=== PATIENT | female | born 1945 | race Caucasian/White ===

== ENCOUNTER 2020-01-04 11:10 | Inpatient (IN) | payer OTHER, MEDICARE ==
[~2020-01-04] VITALS: Ht 157.5 cm; Wt 62.5 kg
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
[2020-01-04 16:59] VITALS: BP 134/68
[2020-01-04 18:09] LABS: URINE BILIRUBIN NEGATIVE (Negative); URINE BLOOD NEGATIVE (Negative); URINE CLARITY CLEAR; URINE COLOR YELLOW; URINE GLUCOSE-RANDOM* NEGATIVE (Negative); URINE KETONES NEGATIVE (Negative); URINE LEUKOCYTES-REFLEX NEGATIVE (Negative); URINE NITRITE-REFLEX NEGATIVE (Negative); URINE PROTEIN (DIPSTICK) NEGATIVE (Negative)
[2020-01-04 19:43] VITALS: BP 165/83
[2020-01-04 21:00] VITALS: BP 165/83
--- NOTE | 2020-01-05 01:58 | NUR ---
PATIENT ASSESSED AND IS ALERT X 1, SELF. WAS WONDERING IN HALLWAY ALL NIGHT. UP AD MABEL ROOM AND HALLWAY. IS PARANOID THINKING PEOPLE ARE OUT TO GET HER. USUES HER WALKER FOR AMBULATING. LAST BM WAS 01/03/20. NO CODE. ON REGULAR DIET TAKEN HER MEDS WELL TONIGHT. VS STABLE. LUNGS CLEAR. NO EDEMA NOTED. CONTINENT WITH HELP WEARS ATTENDS.NO SI/HI/ NOTED. IS A ALOPEMENT RISK. MONITOR DOORSAT ALL TIMES. DENIES ANY PAIN. NO SHYSICAL OR VERBAL AGGRESSION NOTED SO FAR THIS SHIFT. CONT PALN OF CARE.
[2020-01-05 08:00] VITALS: BP 136/82
--- NOTE | 2020-01-05 09:03 | NUR ---
PT AT BREAKFAST TABLE THIS AM APPETITE GOOD. PT TOOK AM MEDS W/O DIFFICULTY. NO INCREASED ANXIETY. NO S/SARAHY OR RESP DISTRESS.
--- NOTE | 2020-01-05 10:41 | NUR ---
DR LUEVANO HERE TO SEE PATIENT HAS NEW CONSULT ORDER.
--- NOTE | 2020-01-05 12:39 | NUR ---
PT ATE LUNCH AND IS NOW WALKING THE UNIT WITH ROLLING WALKER AND STEADY GAIT. PT W/O PAIN OR INCREASED ANXIETY.
[2020-01-05 19:47] VITALS: BP 132/66
--- NOTE | 2020-01-05 22:45 | NUR ---
Care assumed of patient at 1915: Patient resting in bed at start of shift. Easily aroused. Calm, pleasant and cooperative. Patient alert and oriented to person only. Patient having disorganized tangential speech. Difficulty focusing and answering questions during assessment. Patient pleasantly confused. Patient did have difficulty making eye contact and had a suspicious affect when nurse was speaking. Patient declined HS snack. Patient took HS medication whole without difficulty. Patient did attempt to chew some medications and needed directed on swallowing. Drank 240cc water without difficulty. Patient gait steady, up with walker. Provided stand by assist for safety due to increased fall risk. Continent of bladder. No aggression or agitation shown. No behaviors indicative of SI/HI/AH/VH observed. Patient was able to go to sleep without difficulty and is resting quietly in bed at this time.
[2020-01-06 07:53] VITALS: BP 126/83
[2020-01-06 08:00] VITALS: BP 126/83
--- NOTE | 2020-01-06 08:52 | NUR ---
PT SITTING IN DINING ROOM NEEDING FED BREAKFAST. PT TOOK MEDS WITH APPPLESAUCE AND CHEWED UP MEDS. PT HAS EYES CLOSED AT TABLE. PT USING WALKER WITH STAND-BY ASSIST. PT LUNGS CLEAR. PT DENIES ANY PAIN.
--- NOTE | 2020-01-06 18:22 | NUR ---
PT HAS BEEN RESTING TODAY IN CHAIR IN DINING ROOM. NOTICED HANDS SHAKING WITH DINNER. PT ASKING ABOUT A BABY. PT USES WALKER FAITHFULLY. NO ISSUES FROM PATIENT. SHE HAS TAKEN MEDS AND ATTENDED GROUP.
[2020-01-06 19:37] VITALS: BP 160/97
--- NOTE | 2020-01-07 02:35 | NUR ---
ASSUMED PT CARE AROUND 1930. ALERT AND AWAKE. INDEPENDENT WITH AMBULATION WITH WALKER. PT DOES NOT ANSWER MAJORITY OF THE QUESTIONS APPROPRIATELY. ABLE TO VERBALIZE ABSENCE OF PAIN WHEN ASKED. VSS. NO S/S ACUTE DISTRESS NOTED OR REPORTED AT THIS TIME. WILL CONT TO MONITOR FOR ANY CHANGES IN CONDITION.
[2020-01-07 07:39] VITALS: BP 149/91
--- NOTE | 2020-01-07 08:13 | NUR ---
PT SITTING AT TABLE NOT EATING. PT ENCOURAGED TO EAT. PT STATED SHE DIDN'T FEEL LIKE EATING AT THIS TIME. PLACED MEDS INFRONT OF HER. PT NOT TAKING MEDS ON OWN. PLACED MEDS CRUSHED IN OATMEAL. PT DID TAKE A FEW BITES THEN SAID NO. PT USES WALKER TO AMBULATE FAITHFULLY.
[2020-01-07 08:15] VITALS: BP 149/91
--- NOTE | 2020-01-07 09:19 | NUR ---
PT SITTING IN GROUP. PT NOT CONVERSING UNLESS ASKED QUESTIONS.
--- NOTE | 2020-01-07 12:31 | NUR ---
PT ONLY ATE A FEW CHIPS FOR LUNCH. PT SEEMS LIKE SHE DOES NOT HAVE AN APPETITE.
--- NOTE | 2020-01-07 15:00 | NUR ---
PT GIVEN ICE CREAM TO EAT. PT ENCOURAGED TO GO TO GROUP. PT DID GO TO GROUP WITH ICE CREAM.
[2020-01-07 19:34] VITALS: BP 167/88
[2020-01-07 22:00] VITALS: BP 167/88
--- NOTE | 2020-01-08 03:07 | NUR ---
Assumed care of patient this pm shift. Patient in good spirits, calm and cooperative. Patients affect blunted. Patient is alert and oriented to self. Patient denies hi/si. Patient takes medications whole with thin fluids. Patients assessment shows no signs of acute distress. Patient is considered a falls risk and ambulates with a walker. Patient has on yellow socks and shirt. Patient has not shown any negative behaviors. We will continue to monitor per hospital policy.
[2020-01-08 07:48] VITALS: BP 160/80
--- NOTE | 2020-01-08 09:05 | NUR ---
0700 ASSUMED CARE OF PATIENT, PATIENT IN BED WITH EYES CLOSED AT THAT TIME. VS- BP 160/80 P 80 RESP 14 TEMP 97.8 O2 SATS 100% 0800 PATIENT OUT TO DAYROOM FOR BREAKFAST. PATIENT SITTING QUIETLY AT TABLE WITH PEER. MEDICATION GIVEN WHOLE WITH APPLESAUCE WITHOUT DIFFICULTY. PATIENT DOES NOT ATTEND GROUP THIS AM. WILL CONTINUE TO OBSERVE
--- NOTE | 2020-01-08 12:57 | NUR ---
Faxed updates to [facility].
[2020-01-08 19:21] VITALS: BP 150/92
[2020-01-08 23:21] VITALS: BP 150/92
--- NOTE | 2020-01-09 02:49 | NUR ---
Assumed care of patient this pm shift. Patient in good spirits sitting in the mileu during assessment. Patients affect appears blunted. Patient is alert and oriented to self and place. Patient takes medications whole with thin fluids. Patients assessment shows no signs of acute distress. Vital signs are stable. Patient ambulates with a walker and has a steady gait. Patient is pleasantly confused. We will continue to monitor per hospital policy.
[2020-01-09 07:46] VITALS: BP 162/90
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
--- NOTE | 2020-01-09 16:04 | NUR ---
MICAH contacted [facility] and spoke with Callie concerning Pt's d/c. Micah informed PT will be discharged on 01/11/2020. Callie stated put in a request for transportation on that day for 10 am. Callie stated transportation will pick up truck driver between 10-12 pm. Callie stated she would call me back once she is notified of a more specific time. MICAH contacted Pt's DPOA, Sarah Monsivais, to inform of Pt pending d/c. Sarah had no questions or concerns. Pt will be d/c back to [facility] on 01/11/2020.
--- NOTE | 2020-01-09 18:53 | NUR ---
0700 ASSUMED CARE OF PATIENT, PATIENT IN ROOM AT THAT TIME. PATIENT TO DAYROOM FOR BREAKFAST. PATIENT CONFUSED AND DIFFICULT TO UNDERSTAND. MEDICATIONS ATTEMPTED TO GIVE, PATIENT WILL NOT OPEN EYES AND MEDICATIONS NOT GIVEN AT THAT TIME. 30 MIN LATER PATIENT TAKES MEDICATION CRUSHED IN PUDDING WITHOUT DIFFICULTY. PATIENT UP AMB WITH WALKER WITH STEADY GAIT PACING AND ASKING FOR STAFF TO FOLLOW HER TO ROOM. DIFFICULTY UNDERSTANDING AT TIMES.
[2020-01-09 19:31] VITALS: BP 183/95
--- NOTE | 2020-01-09 21:34 | NUR ---
Care assumed of patient at 1915: Patient pacing the halls at start of shift. Having disorganized speech, tangential thoughts. Patient confused and forgetful. Alert and oriented to person only. Patient denies pain and discomfort. No behaviors indicative of SI/HI/AH/VH. No exit seeking behaviors observed. No aggression or agitation observed. No delusional or paranoia behaviors observed. Patient ate 50% HS snack. Took HS medication whole without difficulty. Patient continent of bowel and bladder. Cooperative with assessment. Patient currently resting quietly in bed at this time.
[2020-01-10 09:19] VITALS: BP 154/94
--- NOTE | 2020-01-10 09:40 | NUR ---
0700 ASSUMED CARE OF PATIENT , PATIENT IN BED AT THAT TIME. 0840 TABLET REPAIR TO ROOM, PATIENT CONTINUES TO SLEEP. PATIENT AWAKES EASILY, MEDICATION TAKEN CRUSHED IN APPLESAUCE WITHOUT DIFFICULTY. PATIENT CONTINUES TO REFUSE BREAKFAST. 0910 PATIENT OUT TO DAYROOM TO ATTEND GROUP. PATIENT ALERT AND ORIENTED X1. DENIES PAIN. DENIES SI/HI. WILL CONTINUE TO OBSERVE
--- NOTE | 2020-01-10 17:46 | NUR ---
PATIENT IN DAYROOM EATING DINNER. PATIENT OBSERVED WITH HAND TREMORS WHILE EATING. PATIENT FEEDING SELF, SLOW TO EAT. PATIENT DENIES NEEDS AT THAT TIME. PATIENT OBSERVED AMB WITH WALKER WITHOUT DIFFICULTY.
[2020-01-10 19:35] VITALS: BP 163/95
--- NOTE | 2020-01-10 23:55 | NUR ---
Care assumed of patient at 1915: Patient resting quietly in bed at start of shift. Easily aroused. Alert and oriented to first name only. Pleasantly confused and forgetful. Speech disorganized and tangential. Denies pain and discomfort. Unknown if she comprehends questions. No s/s of pain or discomfort observed. Patient denies SI/HI/AH/VH. No behaviors indicative of SI/HI/AH/VH, delusions or paranoia. No exit seeking behaviors observed. No aggression observed. Unknown what patient is talking about but she seems to be passionate about it and smiles during conversation. Patient took HS medication whole without difficulty. Declined HS snack. Continent of bladder. Resting quietly in bed at this time.
[2020-01-11 07:27] VITALS: BP 159/82
[2020-01-11] MEDS ORDERED: CLARITIN10 M2 PO (08:22)
[2020-01-11] MEDS ORDERED: NORVASC5 MG PO (08:23)
[2020-01-11] MEDS ORDERED: ARICEPT10 M1 PO (08:23)
[2020-01-11] MEDS ORDERED: DEPAKOTE SPRIN125 MG PO (08:24)
[2020-01-11] MEDS ORDERED: REMERON 30 MG T30 M1 PO (08:24)
[2020-01-11] MEDS ORDERED: NAMENDA 5 MG TAB5 M1 PO (08:24)
[2020-01-11] MEDS ORDERED: PROTONIX 20 MG20 M1 PO (08:25)
[2020-01-11] MEDS ORDERED: POTASSIUM CITRA5 MEQ PO (08:25)
[2020-01-11 10:46] VITALS: BP 159/82
--- NOTE | 2020-01-11 11:57 | NUR ---
0910 RESUMMED CARE FROM OVERNIGHT SHIFT THIS AM, PATIENT COOPERATIVE CALM. PATIENT IS ORIENTED TIMES 1 TO SELF ONLY, DENIES SI/HI/AH/VH AT PRESENT. PATIENTS LUNGS CLEAR ABDOMEN SOFT ROUND BOWEL SOUNDS PRESENT, PATIENT DISCHARGED TO [facility] WITH BELONGINGS AND DISCHARGED INFORMATION. I FAXED DISCHARGE INFORMATION TO KYLE AT [facility] AND GAVE REPORT BERONICA THE NURSE.
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
== END 2020-01-11 10:05 | DRG 57 ==
LOC: SBH 11:10
PROVIDERS: ADMIT Psychiatry & Neurology Psychiatry; ATTEND Psychiatry & Neurology Psychiatry
DX: G30.9 Alzheimer's disease, unspecified (principal); F01.51 Vascular dementia, unspecified severity, with behavioral disturbance; F02.81 Dementia in other diseases classified elsewhere, unspecified severity, with behavioral disturbance; I10 Essential (primary) hypertension; M19.90 Unspecified osteoarthritis, unspecified site; G47.00 Insomnia, unspecified; I73.9 Peripheral vascular disease, unspecified; G89.29 Other chronic pain; Z96.653 Presence of artificial knee joint, bilateral; Z20.828 Contact with and (suspected) exposure to other viral communicable diseases
CPT/HCPCS: 10880

== ENCOUNTER 2020-02-16 17:03 | Inpatient (IN) | payer OTHER, MEDICARE ==
[~2020-02-16] VITALS: Ht 160 cm; Wt 56.7 kg
--- NOTE | ~2020-02-16 | D ---
[facility] [place] [address] DISCHARGE SUMMARY Name: JUDI CHONG Room #: 52-B DIS IN M.R.#: [id number] Admission: 02/17/20 Attend Phys: Pankaj Newman DO Discharge: 03/04/20 Date of : 41 Report #: [id number] THIS REPORT FOR: cc: Narciso Fang MD, Mark I. MD Kerstein, Andrew H. DO ~ CC: Pankaj Fang DATE OF SERVICE: 03/04/2020 INPATIENT PSYCHIATRIC DISCHARGE SUMMARY ATTENDING PSYCHIATRIST: Pankaj Newman DO FIRE INVESTIGATOR: At the time of discharge is Shantell Wolfe MD DISCHARGE DIAGNOSIS: Major neurocognitive disorder, likely due to Alzheimer disease, advanced end-stage. Medical comorbidities include COVID-19 positive. Additional morbidities are urinary tract infection, antibiotics finished; acute kidney injury; failure to thrive; anorexia, secondary to her dementia; and other complications and severe protein-calorie malnutrition; history of hypertension. The patient is discharging on a regular diet. She is discharging to [facility] due to being COVID-19 isolation. The patient is a no code. DISCHARGE MEDICATIONS: Include mirtazapine 30 mg p.o. at bedtime for sleep, appetite, depression; olanzapine 5 mg p.o. daily, for psychosis and impulse control; potassium chloride 20 mEq p.o. daily for supplementation; ____ 10 mg p.o. daily for allergic rhinitis; donepezil 10 mg p.o. at bedtime for cognitive enhancement and consideration should be made to discontinuing this given the severity of her dementia and significant weight loss over the last year, amlodipine 5 mg p.o. daily, Depakote 500 mg p.o. b.i.d. for impulse control as well, memantine 10 mg p.o. b.i.d. LABORATORY DATA: Significant laboratories done during this admission, most recent CBC was on 02/28, H and H 13.0 and 39.6, white count 7.4, platelet count 201. Differential showed a segmented neutrophil percentage 68.5, which was high. Chemistries, most recently on 02/28, sodium 142, potassium 4.2, chloride 106, bicarbonate 27, anion gap 9, BUN 29, creatinine 1.5, estimated GFR 34, glucose 124, calcium is 9.2. Urinalysis this admission on 03/01 showed trace protein, 1+ ketones, otherwise normal. Glucose was negative. Urine toxicology for Depakote levels on 02/20 was ____, 02/21 was desirable with 87. There was a repeat level on the at 95. So, I backed down on the Depakote from [address] [address] DISCHARGE SUMMARY Name: JUDI CHONG Room #: 522B-B DIS IN M.R.#: [id number] Admission: 02/17/20 Attend Phys: Pankaj Newman DO Discharge: 03/04/20 Date of : 41 Report #: [id number] 500 b.i.d. COVID-19 PCR serology was as follows; negative on 02/24, negative on admission, but positive on the . IMAGING: This admission chest x-ray on 03/03 showed possible early airspace infiltrate in the right lower lung. Followup PA and lateral chest x-ray was recommended. The patient has been using a walker most of the admission, but currently has weakened due to her COVID infection, so she is in bed and wheelchair only. Microbiology this admission, urine culture from 02/16 showed a pansensitive E. coli. REASON FOR ADMISSION: Back on 02/15 or 02/16, sent to the ER from [facility], patient of ____. She had aggressive behavior. Also, complaining of suicidal ideation. HOSPITAL COURSE: The patient was admitted to Geriatric Psychiatry Unit. Initially stabilized the patient by titrating her Depakote. We were about to discharge her around a week ago when she had some assaultive behavior over the weekend, so I elected to keep her longer, started her on olanzapine and has been titrated to 5 mg twice a day. Unfortunately, due to COVID-19 exposure, the whole unit was tested and this patient came back positive. At the day of discharge, I spoke with her DPOA for healthcare ____ and then her DPOA financial ____ who is a family medicine physician in [place], [place], discussed her diagnosis and her poor prognosis. Recommending her to remain no code without ICU care and if her general physical conditions worsen, she certainly would be a good hospice candidate. Greater than 45 minutes were spent on discharge activities today including telephone conversations with her general financial and healthcare DPOAs. I did a progress note for the patient that includes mental status examination. PROGNOSIS: For this patient is poor given advanced dementia, COVID-19 status, ___. By: 16 56 Pankaj Newman, DO /nt
[~2020-02-16 17:03] MED LIST: ARICEPT10 M1 PO; CLARITIN10 M2 PO; DEPAKOTE SPRIN125 MG PO; NAMENDA 5 MG TAB5 M1 PO; NORVASC5 MG PO; POTASSIUM CITRA5 MEQ PO; PROTONIX 20 MG20 M1 PO; REMERON 30 MG T30 M1 PO
[2020-02-16 17:15] VITALS: BP 123/75
[2020-02-16 18:43] LABS: ABSOLUTE NEUTROPHILS 4.8 thou/uL (1.4-8.2); BASOPHILS 1.3 % (0.0-2.0); EOSINOPHILS 1.4 % (0.0-3.0); HEMATOCRIT 39.3 % (37.0-47.0); HEMOGLOBIN 13.1 gm/dL (12.0-15.0); MCH 33.8 pg (26.0-34.0); MCHC 33.2 g/dL (28.0-37.0); MCV 101.9 fL (80.0-100.0); MONOCYTES 8.4 % (1.0-8.0); PLATELET COUNT 182 thou/uL (150-400); POLYS 60.9 % (36.0-66.0); RBC 3.86 mil/uL (4.20-5.00); RDW 13.8 % (10.5-14.5)
[2020-02-16 18:57] LABS: ANION GAP 13 mmol/L (7-16); BUN 20 mg/dL (7-18); CALCIUM 9.4 mg/dL (8.5-10.1); CHLORIDE 105 mmol/L (98-107); CO2 24 mmol/L (21-32); CREATININE 1.6 mg/dL (0.6-1.0); GLUCOSE 100 mg/dL (74-106); SALICYLATE < 2.8 mg/dL (2.8-20.0); SODIUM 142 mmol/L (136-145)
[2020-02-17 07:29] VITALS: BP 159/98
--- NOTE | 2020-02-17 08:51 | NUR ---
YONY contacted Annie Sánchez to speak to pt's nurse about what brought pt back to hospital. Was told nurse was busy and will call YONY back. SW team will continue to follow pt during her stay on this unit.
[2020-02-17 13:40] VITALS: BP 131/82
--- NOTE | 2020-02-17 13:44 | NUR ---
PATIENT ARRIVED ON UNIT FROM ER AT 2019 THIS MORNING. 74 YEAR OLD FEMALE RESIDENT OF [facility] WHO HAS BEEN AGITATED AND AGGRESSIVE AT FACILITY WITH STAFF. JAYSON MADRID HER DAUGHTER IS HER DPOA. PATIENT ARRIVED CALM AND REDIRECTABLE. UNSTEADY ON FEET - RESTLESS - EXTREMELY CONFUSED - UNABLE TO ANSWER ANY QUESTIONS ADDRESSED TO HER. PATIENT SUFFERS FROM HTN, CHRONIC PAIN, VASCULAR DISEASE AND OSTEOARTHRITITS. OBSERVED NO AGITATION BUT RESTLESS AND ATTEMPTS TO AMBULATE WITHOUT ASSISTANCE. NEEDS MONITORING FOR SAFETY - PATIENT KNOWN TO EXIT SEEK AT NIGHT AT FACILITY - AMBULATION WITH WALKER. PATIENT DNR - CONTINENT OF BOWEL AND BLADDER AND MAKES NEEDS KNOWN WHEN NECESSARY. PATIENT'S DIAGNOSIS IS UNSPECIFIED DEMENTIA WITH BEHAVORIAL DISTURBANCE. PATIENT NEEDS ASSISTANCE WITH FEEDING TO ENCOURAGE EATING. ORDERS ENTERED BY DR. LESLIE AND CARE PLAN AND ADMITTANCE INFORMATION PROCESSED. HEART RATE STRONG AND STEADY WHEN ASSESSED AND LUNGS CLEAR ON AUSCULTATION. TREMORS EVIDENT IN UPPER EXTREMITIES -
[2020-02-17 15:23] LABS: URINE BLOOD NEGATIVE (Negative); URINE CLARITY CLOUDY; URINE COLOR YELLOW; URINE GLUCOSE-RANDOM* NEGATIVE (Negative); URINE KETONES 1+ (Negative); URINE PROTEIN (DIPSTICK) 1+ (Negative); URINE SPECIFIC GRAVITY >= 1.030 (1.005-1.035)
[2020-02-17 15:24] LABS: ICTOTEST (BILI CONFIRMATORY) Negative (Negative); URINE BILIRUBIN NEGATIVE (Negative); URINE LEUKOCYTES-REFLEX 1+ (Negative); URINE NITRITE-REFLEX POSITIVE (Negative)
[2020-02-17 15:45] LABS: SQUAMOUS 4-10 Moderate /LPF (0-3); URINE WBC-REFLEX >25 Many /HPF (0-5)
[2020-02-17 15:46] LABS: CASTS None Seen /LPF (None Seen); CRYSTALS None Seen /LPF (None Seen); URINE RBC 0-2 Rare /HPF (0-2)
--- NOTE | 2020-02-17 16:58 | NUR ---
PATIENT CARE ASSUMED AFTER ARRIVAL AT 2020 - QUIET - NEEDS ENCOURAGEMENT AND ASSISTANCE WITH MEALS. MAKES NEEDS KNOWN WITH TOLLETING BUT NEEDS REDIRECTION WITH ADL'S. TAKES MEDICATIONS WITH PUDDING. ALERT TO SELF ONLY. NON RESPONSIVE TO QUESTIONS ADDRESSED TO HER. NO AGITATION OR AGGRESSION OBSERVED. HAS BEEN IN MALVIN CHAIR WITH [employer]. WANTS TO GET UP BUT UNSTEADY AND NEEDS MONITORING. CAN STAND AND PIVOT WITH HELP WHEN TRANSFERRING TO WHEELCHAIR. STARTED ON CEFUROXINE FOR UTI - MONITOR FOR ALLERGY REACTION. DR. BOSWELL AWARE OF THIS.
[2020-02-17 17:30] LABS: AMP/METHAMP Negative (Negative); BARBITURATES Negative (Negative); BENZODIAZEPINES Negative (Negative); COCAINE Negative (Negative); METHADONE Negative (Negative); OPIATES Negative (Negative); PCP Negative (Negative)
[2020-02-17 19:06] VITALS: BP 145/90
--- NOTE | 2020-02-18 05:01 | NUR ---
Assumed care of patient this pm shift. Patient is alert and oriented to self only. Patient is confused. Patient does not appear to show any signs of hi/si. Patient takes medications crushed in pudding. Patient is considered a falls risk. Patient has on a yellow shirt and ambulates via wheelchair. Patients affect is blunted. No signs of acute distress noted. We will continue to monitor per hospital policy.
--- NOTE | 2020-02-18 08:22 | NUR ---
PT APPROACHED FOR AM MEDS IN DAYROOM-SITTING AT BREAKFAST TABLE WITH EYES TIGHTLY CLOSED-WHEN ASKED WHY WASN'T EATING REFUSED TO RESPOND. AM MEDS PLACED IN PUDDING AND PT INFORMED I HAD HER AM MEDICATIONS-REFUSED TO OPEN MOUTH. WHEN INFORMED MD MAY REQUEST IM MEDS IF PO REFUSED OPENED HER EYES AND SPIT PHLEGM DIRECTLY IN NURSES FACE. NOTIFIED.
--- NOTE | 2020-02-18 11:09 | NUR ---
REUSED BREAKFAST PREVIOUSLY NOTED REFUSED AM MEDS-REFUSED GROUP. WANDERING INTO OTHERS ROOMS STATING "HELP ME, I NEED HELP" WHEN STAFF ATTEMPTED TO ASSIST TO BATHROOM ATTEMPTED TO PINCH AND HIT. WHEN QUESTIONED WHAT TYPE OF HELP SHE NEEDED UNABLE OR UNWILLING TO ANSWER STARING AT NURSE WITH ANGRY FACIAL EXPRESSION. WHEN ASKED IF SHE WAS HAVING PAIN STATES ANGRILY "NO ARE YOU"
[2020-02-18 11:14] VITALS: BP 138/82
--- NOTE | 2020-02-18 15:45 | NUR ---
HAS WITHDRAWN TO ROOM LYING IN BED MAJORITY OF TIME WITH EYES TIGHTLY CLOSED-DOES NOT APPEAR TO BE SLEEPING WHEN STAFF ENTERS ROOM HAS EYES OPEN AND WHEN ATTEMPTS ARE MADE TO COMMUNICATE CLOSES EYES TIGHTLY AND TURNS HEAD AWAY-HAS BEEN REAPPROACHED X 2 TO TAKE AM MEDICATIONS BUT CONTINUES TO REFUSE-REFUSED LUNCH-REFUSES PO FLUIDS WHEN OFFERED-MATERIAL STOCKKEEPER YARD NOTIFIED OF ABOVE DURING AM ROUNDS.WILL CONTINUE TO MONITOR Q 12 FOR SAFTEY-ENCOURAGE COMPLIENCE WITH FOOD/FLUIDS AND MEDS
--- NOTE | 2020-02-18 18:41 | NUR ---
UP AND WALKING AROUND IN ROOM AT APPROX 1630 CAUSING BED EXIT TO ALARM-ASSISTED TO BR AND DID VOID SMALL AMOUNT IN BSC-GAIT STEADY WITHOUT ASSIST. DID AGREE TO COME TO DAYROOM AND EAT SUPPER-ATE APPROX 30 PERCENT BEFORE RETURNING TO ROOM-REFUSED TO SIT WITH PEERS-VERY CONFUSED-ORIENTED TO NAME ONLY STATING "I HAVE BEEN BAD-I'M BAD" VOIDED AGAIN PER BSC AND ASSISTED INTO BED PER REQUEST-POSITIONED FOR COMFORT
[2020-02-18 20:17] VITALS: BP 128/74
--- NOTE | 2020-02-19 05:15 | NUR ---
Assumed care of pt @ 1900. Pt calm et cooperative most of shift. Refused HS meds this shift. Unable to assess ambulation as pt remained bedfast during shift. VSWNL. Health assessment with no abnormalities at present time. Denies SI/HI/AVH at present time. Isolated in room most of shift. Currently resting in bed with eyes closed. Will continue to monitor per unit protocol.
--- NOTE | 2020-02-19 08:30 | NUR ---
PT OUT TO EAT BREAKFAST. GETTING READY TO PASS MEDS AND PT WENT BACK TO BED. PT DOES NOT TALKING TO OTHERS AND KEEPS TO HERSELF. PT DOES USE WALKER INTERMITTENTLY.
[2020-02-19 08:41] VITALS: BP 153/92
[2020-02-19 09:00] VITALS: BP 153/92
--- NOTE | 2020-02-19 11:18 | H ---
[facility] [place] [address] HISTORY AND PHYSICAL Name: JUDI CHONG Room #: 522B-B ADM IN M.R.#: [id number] Admission: 02/17/20 Attend Phys: Pankaj Newman DO Discharge: Date of : 41 Report #: [id number] THIS REPORT FOR: cc: Narciso Fang MD,Narciso Newman,Pankaj Sarah DO ~ CC: Pankaj Fang DATE OF SERVICE: 02/17/2020 INPATIENT PSYCHIATRIC EVALUATION ATTENDING PSYCHIATRIST: Pankaj Newman DO. DOOR TO DOOR SALESPERSON: Christian Franz MD REASON FOR ADMISSION: Suicidal ideation, exit seeking, history of dementia. CHIEF COMPLAINT: Unspecified. HISTORY OF PRESENT ILLNESS: This is a 74-year-old female residing at the [facility]. She is known to me from a relatively recent admission in early January of this year. The patient resides at the [facility] in [place]. The events that precipitated admission; was trying to exit throught derek evans and yelling at the Reefer Engineer. She stated "I want to kill myself because I do stupid stuff and they do stupid stuff." She denied a plan then. This morning on interview in the dining room she stated she would overdose on pills. The patient does have expressive aphasia as well as receptive aphasia, so this makes evaluating things difficult. She was initially redirected, escorted back to room and she wandered off the unit and down the elevator to the front entrance and that is when; [facility] review it looks like she has been uncooperative dating back to at least 02/14/2020. It looks like she makes references; they were awful and yelling inexplicably at times. Information from the ER; she has generally been aggressive toward staff, not eating normally; history of spinal stenosis. PAST MEDICAL HISTORY: Chronic back pain, hypertension, peripheral vascular disease. PSYCHIATRIC HISTORY: Dementia, depression, anxiety. MEDICATIONS: Over at [facility] have been as follows: Depakote Sprinkles 250 mg 3 times a day, Ativan 0.5 mg q. 4 hours p.r.n., trazodone 50 mg p.o. at [address] [address] HISTORY AND PHYSICAL Name: JUDI [facility]ONG [facility].R[facility] [id number] Admission: 02/17/20 Attend Phys: Pankaj Newman DO Discharge: Date of : 41 Report #: [id number] bedtime for insomnia, Tylenol, Remeron 15 mg at bedtime, milk of magnesia, loratadine 10 mg p.o. daily, potassium citrate 20 mEq p.o. daily that is ER formulation, pantoprazole [address] Narciso Fang is her PCP. Cepacol, capsaicin, ondansetron, memantine 10 mg p.o. b.i.d., amlodipine 5 mg p.o. daily, donepezil 10 mg p.o. at bedtime. ALLERGIES: TO SULFONAMIDE, ANTIBIOTICS TIGAN, AMOXICILLIN, DOXYCYCLINE, BACTRIM, CODEINE AND HYDROXYZINE NOTED. Weight 58.97 kilos, height 160 cm, BMI 23. SOCIAL HISTORY: Denies alcohol, tobacco, or recreational drug use. REVIEW OF SYSTEMS: In the ER. CONSTITUTIONAL: Denies fever, chills, malaise, unexplained weight change. EYES: Denies eye pain, visual change or discharge. HENT: Denies hearing changes, ear drainage, ear infections, ear pain, neck pain or neck stiffness. RESPIRATORY: Denies cough, shortness of breath, hemoptysis or respiratory distress. CARDIOVASCULAR: Denies chest pain, chest pain with exertion or edema. GASTROINTESTINAL: Denies abdominal pain, nausea, vomiting or diarrhea. GENITOURINARY: Denies burning, frequency or dysuria. MUSCULOSKELETAL: Denies back pain, joint pain, muscle weakness or myalgias. SKIN: Denies rash. NEUROLOGIC: Denies weakness, headache, loss of consciousness. Otherwise, 10-point review of systems negative. LABORATORY DATA: From the ER, white count 8.0, H and H 13.1 and 39.3, MCV high at 101.9, platelet count 182 as on 02/16/2020. Chemistries from 02/16/2020; sodium 142, potassium 4.3, chloride 105, bicarbonate 24, anion gap 13, BUN 20, creatinine 1.6, estimated GFR 31, glucose 100, calcium 9.4. Urinalysis was negative on 01/04/2020. It does not look like they got a repeat urinalysis that I could see; however, that will need to be obtained. Salicylate less than 2.8, acetaminophen less than 2. Depakote 37. Serum alcohol less than 10. Serology is negative. It should be noted her COVID-19 PCR serology is negative. I do not see urinalysis done, so we will have to do a straight catheterization. ADDITIONAL SURGICAL HISTORY: Bladder surgery, multiple back surgeries, bilateral knee replacements with one revision. FAMILY HISTORY: Unknown at this time. She had been at [facility] for 2 years, first year in assisted living, last year in Memory Care. Estranged from her brother. Sister is not a close relationship. [facility] [address] [place] [address] HISTORY AND PHYSICAL Name: JUDI CHONG Room #: 522B-B ADM IN M.R.#: [id number] Admission: 02/17/20 Attend Phys: Pankaj Newman, Discharge: Date of : 41 Report #: [id number] EDUCATIONAL HISTORY: Bachelor's degree in teaching degree. Worked at [employer]; always been single, never , no surgeries. PHYSICAL EXAMINATION: VIAL SIGNS: This morning are as follows: She is afebrile, pulse rate 78, respirations 18, BP 159/98, O2 sat 98%. MUSCULOSKELETAL: She could only walk a little bit, but did not formally tested by me, sitting in the dining wheelchair. I see this is a well-developed, ill-appearing female, appearing older than stated age. Attention limited. Concentration limited. Speech is normal rate, nonsensical responses frequently to questions. Mood and affect are restricted, congruent. Did admit to SI with overdose on pills. Some helplessness, hopelessness. No auditory, visual, or tactile hallucinations. Memory known to be impaired, insight impaired, judgment impaired. Fund of knowledge well below average. FORMULATION: A 74-year-old female admitted for suicidal ideation, dementia with behavioral disturbance. PLAN: Evaluate, stabilize, obtain collateral. Regarding her medications, Depakote level did come back at 37; we will increase it slightly. Continue loratadine 10 mg daily, amlodipine 5 mg p.o. daily with pulse parameter weighing less than 110, Remeron 22.5 mg p.o. at bedtime, continue donepezil 10 mg p.o. at bedtime, potassium chloride 20 mEq p.o. daily, memantine 10 mg p.o. b.i.d., Depakote 500 mg p.o. b.i.d., I will hold off, increasing this until we will do a blood level recheck. Otherwise, house PRNs. Greater than 60 minutes spent on this case, greater than 50% on review of records, coordination of care. STRENGTHS: She is insured. She has a DPOA. WEAKNESSES: Advancing age, advancing dementia, some medical comorbidities. <ELECTRONICALLY SIGNED> By: Pankaj Newman DO 02/19/20 [id number] Pankaj Newman DO /nt
--- NOTE | 2020-02-19 11:58 | NUR ---
PT OUT TO EAT LUNCH. APPROACHED PT AND GAVE HER MED CUP. PT STATED SHE WAS BAD, ENSURED PT SHE WAS NOT. PT TOOK A TASTE OF CHEESE CAKE AND DIDN'T WANT ANYMORE. PT DID TAKE MEDS PO BY HERSELF. PLACED DEPAKOTE SPRINKLES IN ICE CREAM. PT LEFT TABLE AND DIDN'T EAT ANY LUNCH. PT DID TAKE DEPAKOTE IN ICE CREAM AND ATE ALL OF IT, THIS ABRASIVE MIXER HAD TO FEED IT TO HER. GAVE HER FRESH ICE WATER.
--- NOTE | 2020-02-19 12:05 | NUR ---
YONY faxed update to [facility]. YONY team will continue to monitor.
--- NOTE | 2020-02-19 12:06 | NUR ---
SW completed psychosocial assessment and tx plan. SW team will continue to monitor.
--- NOTE | 2020-02-19 12:30 | NUR ---
PT CAME OUT OF ROOM AND WANTED TO KNOW IF IT WAS TIME, PT FOLLOWED THIS PALLIATIVE CARE SPECIALIST TO DINING ROOM. OFFERED HER SOMETHING TO COLOR OR PAINT HER NAILS, SHE SAID OK. BY TIME WENT BACK TO DINING ROOM WITH COLORS SHE LEFT TO GO BACK TO ROOM.
--- NOTE | 2020-02-19 13:00 | NUR ---
PT CAME TO DESK WITH MIKE AND ASKING THIS BINGO USHER TO COME. WALKED WITH PT TO ROOM AND HELPED HER GET COVERED UP WITH BLANKETS. SHE WAS OK. OFFERED PT IF SHE NEEDED TO USE BATHROOM, SHE DENIED AT THIS TIME.
--- NOTE | 2020-02-19 17:18 | NUR ---
PT DID COME OUT TO EAT SOME DINNER. PT HAD A FEW BITES AND WENT BACK TO BED.
--- NOTE | 2020-02-19 17:49 | NUR ---
TALKED TO SHILOH DILLON AND GAVE UPDATE ON HOW PT IS DOING TODAY. GOT SOME IDEAS ABOUT WHAT SHE LIKES TO EAT, WILL TRY TO ORDER HER SOME FOOD SHE LIKES TO EAT. SHILOH STATED SHE DOES LIKE DIET COKE. SHE STATED THAT SHE USED TO LIKE TO COOK. SHE STATED SHE ALSO LIKES COFFEE ICE CREAM, AND BAKED POTATOS. SHE WAS HAPPY I CALLED AND STATED IT MADE HER DAY.
[2020-02-19 19:21] VITALS: BP 131/82
--- NOTE | 2020-02-19 23:33 | NUR ---
Care of patient assumed at 1915: Patient seated in dayroom at start of shift. Withdrawn to self. Alert and oriented to person only. Confused and forgetful. Impulsive at times. Patient requested to go to her room, nurse asked for her to wait a minute and nurse will walk with her, patient got up independently, not waiting on nurse. When offered a walker, patient resistive on using walker and needed instruction on how to use walker. Patient ate 25% HS snack. Attempted to provide HS medication whole, patient attempted to chew medications. Patient had trouble comprehending swallowing pills with drink of water. Medication mixed with applesauce and were taken without further difficulty. Continent of bladder. Resistive to nurse staying with her in the bathroom for safety. Denies anxiety and depression. Denies SI/HI/AH/VH. Denies pain and discomfort. Patient was able to fall asleep without difficulty and is resting quietly at this time. Patient currently on abx tx for the dx of UTI. No s/s of adverse effects observed at this time.
[2020-02-20 11:58] VITALS: BP 131/82
--- NOTE | 2020-02-20 13:52 | NUR ---
RESUMMED CARE FROM OVERNIGHT SHIFT THIS AM, PATIENT IN ROOM QUIET. PATIENT CAME TO DAY ROOM ATE 45% OF BREAKFAST TOOK MEDICATION WITHOUT INCIDENCE. PATIENTS ABDOMEN SOFT ROUND BOWEL SOUNDS PRESENT LUNGS CLEAR PATIENT ORIENTED TO SELF. PATIENT DENIES SI/HI/AH/VH AT PRESENT PATIENT WANDERS THE VITAL AND THOUGHT HER COMODE WAS HER WALKER. PATIENT IS CONFUSED NOT EATING MUCH DID TAKE FLU SHOT TODAY. PATIENT IS CALM EASY TO REDIRECT WILL CONTINUE TO MONITOR PATIENT FOR BEHAVIORS AND SAFETY.
[2020-02-20 19:15] VITALS: BP 154/84
[2020-02-20 22:00] VITALS: BP 154/84
--- NOTE | 2020-02-21 03:14 | NUR ---
Assumed care of patient this pm shift. Patient in good spirits, pleasantly confused. Alert and oriented to self. Denies hi/si. Denies pain. Patient ambulates via walker. Falls precautions in place. Patient takes medications in pudding with thin fluids. Assessment shows no signs of acute distress. Affect is blunted. Yellow socks on. We will continue to monitor per hospital policy.
[2020-02-21 07:10] VITALS: BP 142/69
--- NOTE | 2020-02-21 09:55 | NUR ---
AMBULATORY WITH USE OF ROLLER WALKER AND GAIT IS STEADY WITH ASSISTIVE DEVICE. NEEDS PROMPTING,VERBAL QUEING TO INITAITE ANY ADLS -WILL RESPOND AT TIMES WITH REPEATED DIRECTION AND ASSIST IN FEEDING SELF,TOILETING ETC. ORIENTED TO NAME ONLY. TOOK AM MEDICATIONS CRUSHED IN ICE CREAM. NO NOTED OR REPORTED PAIN. ORIENTED TO NAME ONLY.
--- NOTE | 2020-02-21 18:17 | NUR ---
EPISODES OF INCREASED AGITATION/ANXIETY NOTED AFTER 3 PM-IS APHASIC SO HAS DIFFICULTY COMPLETING FULL SENTENCE BUT STATED TO RT STAFF ANGRILY "I KNOW YOU DID IT " AND WALKED OUT OF GROUP ABRUPTLY AT APPROX. 1430-LATER CAME TO NURSING STATION FROM ROOM STATING ANGRILY "THIS IS TERRRIBLE-YOU ARE TERRIBLE" BEFORE WALKING AWAY AND RETURNING TO ROOM. REISISTIVE WITH BEING FED AT SUPPER TIME STATING "THAT IS TERRIBLE-YOU CAN'T GIVE ME THAT AND STARTED TO SPIT FOOD OUT OF MOUTH ONTO FLOOR IN DAYROOM.
--- NOTE | 2020-02-22 00:08 | NUR ---
Assumed care on 02/21/20 @ 19:15, in bed, awake and responded to introduction from this nurse. Cooperated with assessment, HRRR, Lungs CTA bilat, ABD N x 4Q. Unable to give date of last BM. Oriented to person only. Confusion noted. Pleasant affect with interactions. Needs assistance with ADLs including toileting. Denies SI. HI, AH, VH. Takes meds crushed in pudding. Takes very small bites, and with each bite says, that's terrible. Fusses about the thin water provided with medications, saying, It just doesn't have any flavor. Sleeping well overnight, bed in low position, bed alarm set, will continue to monitor as per unit protocol.
[2020-02-22 01:48] VITALS: BP 138/72
--- NOTE | 2020-02-22 15:45 | NUR ---
LABILE MOOD TODAY-FREQUENT EPISODES OF FRUSTRATION/IRRITAATION AEB PACING RAPIDLY IN HALLWAYS -GOING IN AND OUT OF PEERS ROOMS STATING "HELP HELP ME" ANXIOUS DISTRAUGHT FACIAL EXPRESSION. APHASIC SO UNABLE TO COMPLETE ENTIRE SENTENCE BUT EXPRESSING FRUSTRATION "YOU ARE TERRIBLE" "IT ALL TERRIBLE" "I MIGHT WELL KILL MYSELF" INCREASED RESTLESSNESS/ANXIETY.
--- NOTE | 2020-02-22 16:05 | NUR ---
DID TAKE MEDS CRUSHED IN PUDDING/ICE CREAM-EATS POORLY AT MEALTIME DESPITE STAFF FEEDING HER AND ENCOURAGEMENT-WILL TAKE 1-2 BITES BEFORE STATING "THIS IS TERRIBLE" AND EITHER WALKING AWAY OR REFUSING TO OPEN MOUTH.
--- NOTE | 2020-02-22 16:24 | NUR ---
YONY faxed updates to [facility]. Pt set to discharge 02/27/2020 @10 am back to [facility].
--- NOTE | 2020-02-22 18:20 | NUR ---
CALORIE COUNT DONE PER ORDER-PT CONTINUES TO BE RESISITVE WITH EATING MORE THAN 3-4 SMALL BITES BEFORE STATING "THATS TERRIBLE" REQUIRES MULTIPLE,REPEATED REAPPROACHES AND COAXING TO TAKE ANY FOOD/FLUIDS.
[2020-02-22 20:02] VITALS: BP 155/84
--- NOTE | 2020-02-23 05:30 | NUR ---
Assumed pt's care @ 1900. Pt oriented to self. Confused. Pt was pleasant, calm and cooperative with care. No agitation or aggression noted. Pt took meds without issues. Pt had HS snacks. Pt slept well this shift. Fall precautions in place. Will continue to monitor.
[2020-02-23 07:30] VITALS: BP 146/58
--- NOTE | 2020-02-23 14:54 | NUR ---
RT PROGRESS NOTE- Blanca has been slowly progressing in recreation therapy participation goals. At the beginning of her admission, Blanca would present to group for a short period of time before becoming paranoid or upset and returning to her room. She is now able to tolerate a full group if seated next to therapist and provided extra support. Her cognitive impairment and aphasia limit her participation however. CREDIT RATING CHECKER will continue to encourage this participation.
--- NOTE | 2020-02-23 15:26 | NUR ---
Alert and orientated to self only. Able to ambulate independently with walker. No speech/behaviors suggestive of SI/HI. Slightly agitated with meds, tried to slap med out of hand. Redirectable. Otherwise calm. Breath sounds clear. Reg HR auscultated. Color pink with brisk capillary refill and palpable peripheral pulses. Yellow urine per toilet. Active bowel sounds over soft, rounded abdomen. Participating in groups today. Ate container of yogurt with meds. Poor PO intake when eating independently.
[2020-02-23 19:46] VITALS: BP 138/72
--- NOTE | 2020-02-24 00:08 | NUR ---
Assumed pt's care @ 1900. Pt oriented to self. Confused. Tremors noted. Pt was in bed in her room at time of assessment. Calm and cooperative. Meds given per emar. Pt had a cup of yoghurt for HS snacks. Pt in her room, sleeping. Fall precaution in place. Will continue to monitor.
[2020-02-24 07:00] VITALS: BP 117/62
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
[2020-02-24 19:37] VITALS: BP 119/69
--- NOTE | 2020-02-25 04:30 | NUR ---
PT CARE ASSUMED AT 1900. PT LAYING IN BED AWAKE AND CALM. ABLE TO TAKE MEDS CRUSHED IN APPLE SAUCE WITHOUT ANY PROBLEM. PT MORE INTERACTIVE DURING MED PASS BUT SOME CONFUSION OBSERVED. NO AGGESSIVE BEHAVIORS NOTED. UNABLE TO ASSESS SI/SH IDEATIONS DUE TO HER BEING CONFUSED. PT OFFERED TO USE THE BATHROOM BUT SHE DECLINED. VITAL SIGNS STABLE. PT DENIES PAIN. A&O TO SELF. LUNGS SOUNDS CLEAR. HEART SOUNDS NORMAL. BOWEL SOUNDS PRESENT. WILL CTM.
[2020-02-25 08:48] VITALS: BP 169/89
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
--- NOTE | 2020-02-25 11:28 | NUR ---
1000 DR FAGAN HERE TO SEE PATIENT, DISCUSSED PATIENTS POOR APPETITE WITH 1015 EXPLAINED PROCEDURE OF COVID TEST TO PATIENT, COVID COMPLETED AND TO LAB. PATIENT CONTINUES TO REST IN BED
[2020-02-25 19:45] VITALS: BP 127/71
--- NOTE | 2020-02-25 23:50 | NUR ---
ASSUMED PT CARE AT 1900. PT SITTING IN THE DAY ROOM QUIETLY. AFTER A WHILE PT GOT UP AND STAFF HELPED HER TO HER ROOM WHERE SHE LAID IN BED. PT DENIES PAIN. A&O TO SELF. TOOK MEDS CRUSHED IN APPLE SAUCE WITHOUT ANY PROBLEM. LUNGS CTA BL. HEART RHYTHM REGULAR WITH <2 CAP REFILL. BOWEL SOUNDS PRESENT OVER SOFT, NON-TENDER, NON- DISTENDEND ABDOMEN. SKIN PINK, CDI. NO AGGRESSIVE BEHAVIORS NOTED THIS FAR. DENIES SI/SH IDEATIONS. WILL CTM.
[2020-02-26 05:31] LABS: ABSOLUTE NEUTROPHILS 3.4 thou/uL (1.4-8.2); BASOPHILS 0.6 % (0.0-2.0); EOSINOPHILS 1.4 % (0.0-3.0); HEMATOCRIT 38.5 % (37.0-47.0); HEMOGLOBIN 12.6 gm/dL (12.0-15.0); LYMPHOCYTES 31.5 % (24.0-44.0); MCH 33.3 pg (26.0-34.0); MCHC 32.8 g/dL (28.0-37.0); MCV 101.6 fL (80.0-100.0); MONOCYTES 8.3 % (1.0-8.0); PLATELET COUNT 170 thou/uL (150-400); POLYS 58.2 % (36.0-66.0); RBC 3.79 mil/uL (4.20-5.00); RDW 13.9 % (10.5-14.5); WBC 5.8 thou/uL (4.0-11.0)
[2020-02-26 05:40] LABS: ALBUMIN 2.8 g/dL (3.4-5.0); CALCIUM 9.1 mg/dL (8.5-10.1); CREATININE 1.2 mg/dL (0.6-1.0); POTASSIUM 4.2 mmol/L (3.5-5.1); TOTAL BILIRUBIN 0.3 mg/dL (0.2-1.0); TOTAL PROTEIN 6.1 g/dL (6.4-8.2)
[2020-02-26 07:39] VITALS: BP 138/82
[2020-02-26 10:35] VITALS: BP 138/82
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
[2020-02-26 18:57] VITALS: BP 144/61
--- NOTE | 2020-02-27 05:06 | NUR ---
Assumed care on 02/26/20 @ 19:15, ambulating with walker throughout the mileu, cooperated with assessment and medication administration. Went to bed and got up several times early in the evening, then after meds, was able to relax and slept well throughout the night. Bed in low position, bed alarm set, rounding on [facility] protocol for comfort and safety.
[2020-02-27 05:09] VITALS: BP 144/61
--- NOTE | 2020-02-27 06:37 | NUR ---
slept 8.4 hours overnight.
[2020-02-27 08:00] VITALS: BP 155/70
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
[2020-02-27 15:24] VITALS: BP 155/67
--- NOTE | 2020-02-27 15:30 | NUR ---
ASSUMED CARE AT 0700 TODAY. PT. IN A MORE PLEASANT MOOD TODAY THAN SHE WAS OVER THE WEEKEND. SHE HAS NOT BEEN NOTED TO BE AGITATED, HITTING OR RUNNING HER WALKER INTO PEOPLE. SHE HAS NOTED TO BE SMILING ONCE THIS MORNING. SHE DID NOT COME OUT TO THE DINING ROOM FOR BREAKFAST. SHE DID EAT VERY LITTLE FOR LUNCH ALSO (20%). HAS BEEN IN HER ROOM RESTING WHEN NOT OUT EATING. SHE DID ATTEND RT GROUP THIS AFTERNOON. SHE TOOK HER MEDICATIONS THIS MORNING WITHOUT DIFFICULTY.
--- NOTE | 2020-02-27 19:23 | NUR ---
Assumed pt care at 1900. Pt resting quietly in a [place] in the day room watching TV. No concerns voiced at this time.
[2020-02-27 19:36] VITALS: BP 144/85
[2020-02-28 07:42] VITALS: BP 152/83
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
[2020-02-28 19:15] VITALS: BP 143/71
--- NOTE | 2020-02-28 21:52 | NUR ---
Care assumed of patient at 1915: Patient laying in bed at start of shift. Patient awake, confused and forgetful. Alert to name only. Disorganized speech. Restless at times, pacing about her room. Patient would get out of bed then ask where her bed is and can she go to bed. Patient assisted back to bed x4 after these episodes of confusion. Patient took HS medication crushed without difficulty. Declined HS snack. Drank 60cc water with assist. Continent of bladder. No irritable or frustrated behaviors observed. Denies pain and discomfort. No aggression or agitation observed. Patient denies anxiety and depression, stating "I'm fine, I'm fine" several times. Patient resting quietly in bed at this time.
[2020-02-29 07:30] VITALS: BP 171/86
--- NOTE | 2020-02-29 08:37 | NUR ---
PT SITTING IN DINNING ROOM. PT TOOK MEDS WITH PUDDING THIS AM CRUSHED. PT ABLE TO FEED SELF. PT UP WITH WALKER. PT ORIENTED TO SELF, UNABLE TO MAKE FULL SENTANCES. PT SEEMS SLEEPY THIS AM WITH HEAD DOWN.
--- NOTE | 2020-02-29 09:30 | NUR ---
DURING GROUP PT STANDING AND SAYING THEY ARE TERRIBLE EASILY REDIRECTED.
[2020-02-29 11:18] VITALS: BP 171/86
--- NOTE | 2020-02-29 11:45 | NUR ---
NEEDED ASSISTANCE WITH TAKING AN EXTRA DOSE OF OLAZIPINE, DOSE IS INCREASED FROM 2.5MG TO 5MG TWICE A DAY. REC THERAPY GEE ENCOURAGED PT TO TAKE MED. PT WAS WONDERING AROUND VITAL AND TRYING TO GET INTO A LOCKED DOOR.
--- NOTE | 2020-02-29 16:30 | NUR ---
PT WAS SLEEPING WHEN GOING TO GIVE 1500 DOSE OLANZIPINE. PT STANDING AT DESK WITH WALKER. GAVE OLANZIPINE CRUSHED IN [facility], PT REALLY LIKED THE [facility]. PT ENCOURAGED TO SIT DOWN AND FINISH [facility], PT DID SIT AT TABLE.
[2020-02-29 18:19] LABS: ABSOLUTE NEUTROPHILS 5.1 thou/uL (1.4-8.2); BASOPHILS 0.6 % (0.0-2.0); EOSINOPHILS 0.5 % (0.0-3.0); HEMATOCRIT 39.6 % (37.0-47.0); MCH 33.2 pg (26.0-34.0); MCHC 32.7 g/dL (28.0-37.0); MCV 101.6 fL (80.0-100.0); MONOCYTES 6.4 % (1.0-8.0); PLATELET COUNT 201 thou/uL (150-400); POLYS 68.5 % (36.0-66.0); RDW 13.8 % (10.5-14.5); WBC 7.4 thou/uL (4.0-11.0)
--- NOTE | 2020-02-29 18:19 | NUR ---
PT HAS BLOOD DRAWN AND ALLOWED LAB TO DRAW HER. SHE SEEMS TIRED SITTING IN CHAIR. HAD TO PUT HER ARM BACK DOWN AFTER BLOOD DRAW. GAVE PT SOME WATER TO DRINK. DR. BOSWELL ALSO WANTS A UA TO CHECK FOR UTI DUE TO HER BEHAVIOR TODAY. SHE HAD BOUTS OF YELLING OUT AT PEOPLE TODAY.
[2020-02-29 18:35] LABS: CALCIUM 9.2 mg/dL (8.5-10.1); CREATININE 1.5 mg/dL (0.6-1.0); POTASSIUM 4.2 mmol/L (3.5-5.1)
[2020-02-29 23:45] VITALS: BP 155/67
--- NOTE | 2020-03-01 02:11 | NUR ---
Assumed care of patient this pm shift. Patient in good spirits, pleasantly confused. Patient is alert and oriented to self only. Patient denies hi/si. Patient takes medications crushed in applesauce. Patient is medication adherent. Patients affect is blunted. Patient wonders around the unit alot checking other doors and exploring other patients rooms. Patient is easily redirected. Patient ambulates with a walker when she remembers. Falls protocol in place, yellow shirt and yellow slipper socks. Patients assessment shows no acute distress at this time. We will continue to monitor per hospital policy.
--- NOTE | 2020-03-01 08:26 | NUR ---
RT Progress Note- Blanca has regressed in her ability to participate in the milieu and recreation groups over this review period. She has begun to show increased agitation and her wandering behaviors have increased as well. [facility] SITE MANAGER continues to encourage groups with little success in keeping her present and engaged.
[2020-03-01 09:28] VITALS: BP 151/77
[2020-03-01 13:49] LABS: URINE BLOOD NEGATIVE (Negative); URINE CLARITY CLEAR; URINE GLUCOSE-RANDOM* NEGATIVE (Negative); URINE KETONES 1+ (Negative); URINE LEUKOCYTES-REFLEX TRACE (Negative); URINE NITRITE-REFLEX NEGATIVE (Negative); URINE PROTEIN (DIPSTICK) TRACE (Negative); URINE SPECIFIC GRAVITY >= 1.030 (1.005-1.035)
[2020-03-01 13:53] LABS: URINE COLOR YELLOW
[2020-03-01 13:56] LABS: ICTOTEST (BILI CONFIRMATORY) Negative (Negative); URINE BILIRUBIN NEGATIVE (Negative)
--- NOTE | 2020-03-01 14:10 | NUR ---
YONY faxed updates to Leisa @ [facility]
--- NOTE | 2020-03-01 19:41 | NUR ---
0700 ASSUMED CARE OF PATIENT, PATIENT IN BED AT THAT TIME. PATIENT TO DAYROOM FOR BREAKFAST USING WALKER. PATIENT CONFUSED. REFUSED AM MEDS ABLE TO GIVE 30 MIN LATER. PATIENT OBSERVED ENTERING OTHERS ROOM. PATIENT WANDERS IN HALLS.
[2020-03-01 20:20] VITALS: BP 129/87
[2020-03-01 20:27] VITALS: BP 129/87
--- NOTE | 2020-03-02 01:26 | NUR ---
PATIENT HAS BEEN UP WITH WALKER THIS EVENING AND WALKING THE HALLS. SHE HAS BEEN CHECKING THE LOCKS ON CLOSED DOORS. SHE WAS AGITATED AT ONE POINT BECAUSE SHE COULD NOT GET IN THE NURSE STATION. SHE WAS EASILY REDIRECTED TO THE DINING ROOM WHERE SHE SAT AT A TABLE WITH ANOTHER RESIDENT. SHE DID REFUSE HER HS MEDS THIS EVENING WHEN FIRST PRESENTED TO HER CRUSHED IN YOGURT. HOWEVER, LATER IN EVENING SHE DID ALLOW THIS NURSE TO HELP HER TO THE BSC AND TO BED AND SHE AGREED TO EAT SOME PUDDING WHICH HAD HER MEDS IN IT. SHE DID CONTINUE EATING THE PUDDING AND ATE 50% OF IT. PATIENT IS A/0X1. SHE GETS AGITATED EASILY AT TIMES AND WILL SLAP AT STAFF TO GET AWAY FROM HER. USUALLY WITH SOME TIME AND DISTANCING PATIENT BECOMES COOPERATIVE AGAIN. PATIENT JUST HAD ONE EPISODE OF AGITATION TONIGHT WHICH WAS QUICKLY SETTLED WHEN REDIRECTED. PATIENT IS ASLEEP AT THIS TIME. BED IN LOW POSITION AND BED ALARM IS ON. CONTINUING TO MONITOR.
[2020-03-02 09:49] VITALS: BP 134/68
--- NOTE | 2020-03-02 15:07 | NUR ---
PATIENT IS ALERT, AND ORIENTED X 1, FORGETFU, AND CONFUSED. PATIENT TOOK ALL MORNING MEDICATIONS CRUSHED IN PUDDING WITHOUT ANY DIFICULTY. APPETITE IS POOR, EATS LESS THAN 25% MEALS, WILL NOT LET STAFF FEED HER, SUPPLEMENT OFFERED. PATIENT AMBULATES WITH ASSIST OF ROLLER WALKER, GAIT SLIGHTLY UNSTEADY. SHE DENIES SUICIDAL/HOMICIDAL IDEATION, NO AGITATION OR AGGRESSIVE BEHAVIOR NOTED AT THIS TIME. NO EXIT SEEKING OR TRYING DOORS NOTED. PATIENT HAS BEEN, CALM, COOPERATIVE WITH CARE NO AGITATION OR AGGRESSIVE BEHAVIOR NOTED. SHE CURRENTLY IN BED RESTING. AFFECT IS FLAT/BLUNTED, MOOD IS DEPRESSED, NO SIGN OF ACUTE DISTRESS NOTE, WILL MONITOR FOR SAFETY.
[2020-03-02 20:01] VITALS: BP 141/82
--- NOTE | 2020-03-02 22:17 | NUR ---
ASSUMED PT CARE AT 1900. PT SITTING QUIETLY IN THE DAY ROOM. DENIES PAIN. PT A&O TO PERSON. AMBULATES X1 WITH A WALKER. PT TOOK MEDS CRUSHED WITH APPLE SAUCE WITHOUT ANY DIFFICULTY. PT WITH INCREASED CONFUSION. LUNG SOUNDS CTA SIMA. HEART SOUNDS NORMAL. BOWEL SOUNDS PRESENT X4 OVER SOFT, FLAT ABDOMEN. NO EDEMA NOTED. SKIN CDI. PT DOES NOT SHOW ANY SIGNS OF EXIT SEEKING AND DOES NOT HIT STAFF. PT DENIES S/I VA S/H. WILL CTM.
[2020-03-03 07:39] VITALS: BP 117/71
--- NOTE | 2020-03-03 08:18 | NUR ---
PT SITTING IN DINING ROOM SITTING WITH HEAD DOWN. PT HAS TREMORS NOTED TO ARMS. PT NEEDING ASSISTANCE WITH EATING BREAKFAST AND DRINKING OUT OF A CUP. PT TOOK MEDS IN PUDDING, SHE ATE ABOUT 30% OF BREAKFAST. SHE SAID SHE WANTED TO FIX THE WIFI.
[2020-03-03 08:30] VITALS: BP 117/71
--- NOTE | 2020-03-03 14:06 | NUR ---
PT ATE OVER 50% OF BREAKFAST, PT DIDN'T WANT TO EAT ANY LUNCH. PT RESTING IN BED WITH EYES CLOSED.
--- NOTE | 2020-03-03 15:32 | NUR ---
PT WOKE UP FROM NAP AND GOT A SHOWER, PT WAS INCON. OF URINE. PT TOLERATED SHOWER WELL. PT STILL HAS TREMORS TO ARMS. PT FOLLOWS COMANDS WITHOUT AGGRESSION.
--- NOTE | 2020-03-03 15:45 | NUR ---
PT TOOK MED IN YOGART AND ALSO PT IS HAVING SOME CRACKERS TO EAT. PT STILL SHAKY AND HAS EYES CLOSED DURING EATING. PT DROPPING CRACKERS AND FEELING FOR THEM TO PARTS PERSON. ASSISTED FEEDING WITH YOGART AND CRACKERS.
[2020-03-03 20:08] VITALS: BP 142/84
--- NOTE | 2020-03-04 04:23 | NUR ---
Assumed care of pt @ 1900. Pt calm et cooperative this shift. Took medications crushed in ice cream without difficulty. Pt has had a productive cough all noc. VSWNL. Health assessment with no abnormalities other than previously noted. Ambulates the halls with assistance of walker with steady gait. Denies SI/HI/AVH at present time. Currently resting in bed with eyes closed. Will continue to monitor per unit protocol.
[2020-03-04 09:00] VITALS: BP 125/70
[2020-03-04 09:04] VITALS: BP 125/70
[2020-03-04 09:20] VITALS: BP 125/70
--- NOTE | 2020-03-04 09:20 | NUR ---
PT RESTING IN BED. WARMED UP BREAKFAST AND ASSISTED PT WITH FEEDING. PT TOOK MEDS CRUSHED IN APPLESAUCE AND ATE 1/2 OF THAT. PT ATE 1/2 OF YOGART WITH PROTIENT SUPPLEMENT, SHE DIDN'T LIKE THE ORANGE JUICE OR THE EGGS. PT DID DRINK SOME WATER. PT HAS COUGH AND SWALLOWS CONTENTS, LUNGS DIDN'T SOUND CONGESTED. PT ATE WITH EYES CLOSED THIS AM. BED ALARM IS ACTIVATED.
--- NOTE | 2020-03-04 12:30 | NUR ---
PT HAD TO BE FED LUNCH. PT DID EAT SOME MASHED POTATOES AND ALSO SOME CHEESECAKE. PT DID DRINK SOME WATER.
--- NOTE | 2020-03-04 14:07 | NUR ---
PT STILL RESTING IN BED AT THIS TIME. SHE HAS NOT GOT UP OUT OF BED THIS SHIFT.
--- NOTE | 2020-03-04 14:35 | NUR ---
CHECKING ON VS AND GOT TEMP 98.1 AND SAT 93-95% PT TALKING IN BED.
[2020-03-04] MEDS ORDERED: REMERON 30 MG T30 M1 PO (16:10)
[2020-03-04] MEDS ORDERED: ZYPREXA 5 MG TAB5 M1 PO (16:11)
[2020-03-04] MEDS ORDERED: POTASSIUM20 PO (16:12)
--- NOTE | 2020-03-04 16:40 | NUR ---
YONY sent progress notes and medication list to [facility].
--- NOTE | 2020-03-04 17:50 | NUR ---
PT TRANSFERED TO SENIOR ICU ROOM 221. PT WHEELED TO ROOM AND HAD TO HELP ASSIST PT WITH EATING. PT DID EAT A FEW MEATBALLS AND YOGART. PT ASSISTED TO BATHROOM, PT DIDN'T VOID. PT SAT DOWN BACK TO W/C.
--- NOTE | 2020-03-04 18:39 | NUR ---
1322 PATIENT DC'D VIA WC DUE TO COVID POSITIVE TEST. ACCOMPANIED BY STAFF
== END 2020-03-04 17:35 | disposition short-term general hospital (02) | DRG 884 ==
LOC: ER 17:03 → SBH 02-17 07:18 → EROBS 02-17 07:18 → SBH 02-17 07:31
PROVIDERS: Hospitalist; Nurse Practitioner; Psychiatry & Neurology Psychiatry; ADMIT Psychiatry & Neurology Psychiatry; ATTEND Psychiatry & Neurology Psychiatry
DX: F01.51 Vascular dementia, unspecified severity, with behavioral disturbance (principal); E43 Unspecified severe protein-calorie malnutrition; N17.9 Acute kidney failure, unspecified; R45.851 Suicidal ideations; F03.91 Unspecified dementia, unspecified severity, with behavioral disturbance; N39.0 Urinary tract infection, site not specified; G93.40 Encephalopathy, unspecified; Z20.828 Contact with and (suspected) exposure to other viral communicable diseases; F41.9 Anxiety disorder, unspecified; I73.9 Peripheral vascular disease, unspecified; G89.29 Other chronic pain; I10 Essential (primary) hypertension; R62.7 Adult failure to thrive; F32.9 Major depressive disorder, single episode, unspecified; Z88.8 Allergy status to other drugs, medicaments and biological substances; Z88.2 Allergy status to sulfonamides; Z88.1 Allergy status to other antibiotic agents; Z68.22 Body mass index [BMI] 22.0-22.9, adult; Z23 Encounter for immunization
CPT/HCPCS: 10880

== ENCOUNTER 2020-03-04 16:47 | Inpatient (IN) | payer OTHER, MEDICARE ==
[~2020-03-04 16:47] MED LIST changes: +POTASSIUM20 PO; +ZYPREXA 5 MG TAB5 M1 PO
--- NOTE | 2020-03-04 17:20 | NUR ---
PT ARRIVED TO 221 VIA W/C FROM [facility]. PT POSITIVE FOR COVID. PT OFFERED TO USE BATHROOM AFTER ARRIVING TO ROOM, PT REFUSED TO GO TO BATHROOM. PT ABLE TO SAY YES AND NO TO QUESTIONS. PT DID HAVE A COUGH AND GREEN SPUTUM AND PT ALSO SWALLOWS COUGH CONTENTS. PT ABLE TO DRINK WATER WITHOUT ANY ISSUES. PT NEEDS MEDS GIVEN VIA CRUSHED IN APPLESAUCE OR PUDDING. PT DID LIKE THE [facility] FOR MEDS ALSO. PT HAS DPOA OF [facility] [phone], SHE WAS NOTIFIED BY DR. BOSWELL OF TRANSFER. PT HAS TREMORS TO ARMS BILATERALY AND NEEDS ASSISTANCE WITH FEEDING. PT WAS ORIGIONALY FROM [facility] AND CAME FOR SEVERE DEMENTIA, HITTING AT STAFF, EXIT SEEKING, AND SI STATEMENTS. PT USES WALKER TO AMBULATE, NOW PT IN W/C DUE TO WEAKNESS. LBM WAS NOTED 02/28. PLAN WAS TO D/C THURSDAY UNTIL COVID TEST. PT HAS BEEN DECLINING SINCE ADMIT, INCREASED WEAKNESS, AND DECREASED INTAKE OF FOOD. PT DIET IS KOSHER AND DOES LIKE FRUIT, YOGART, APPLESAUCE, AND MASHED POTATOES. PT HAS PROTIEN POWDER THAT IS PUT INTO YOGART EACH MEAL.
--- NOTE | 2020-03-04 20:30 | NUR ---
PT PLACED IN BED FROM W/C. PT WAS INCON OF URINE IN BRIEF. PLACED A NEW BRIEF ON PT. PT STATED SHE WAS GOING TO . PT STILL HAS COUGH WITH PRODUCTION. PT WIPES MOUTH ON SHEET AND NOTICED GREEN COLOR.
[2020-03-04 22:26] VITALS: BP 140/125
[2020-03-04 22:27] VITALS: BP 125/65
--- NOTE | 2020-03-04 22:33 | NUR ---
PT DID TAKE MEDS IN APPLESAUCE. PT NEEDED ADJUSTED IN BED. PT OFFERED WATER AND WAS UNABLE TO SUCK FROM BIG STRAW IN PITCHER.
--- NOTE | 2020-03-05 04:17 | NUR ---
THIS NURSE ASSUMED CARE OF PATIENT AT APPROX. 2330 03/04/20. PATIENT SLEEPING MOST OF THE NIGHT. LABS DRAWN PER ORDER. ATTEMPTED TO START IV, HOWEVER, PATIENT WILL NOT REMAIN STILL. NEW ORDER FOR IVF TO BE INFUSED CONTINUOUSLY. WILL ATTEMPT AT SHIFT CHANGE WITH NURSE. DENIES PAIN. RESTING QUIETLY. WILL MONITOR.
[2020-03-05 12:11] VITALS: BP 125/70
--- NOTE | 2020-03-05 15:28 | NUR ---
1500 RESUMMED CARE FROM OVERNIGHT SHIFT THIS AM, PATIENT IN ROOM SLEEPING. PATIENT TOOK MEDICATION CRUSHED IN YOGART PATIENT IS EATING ABOUT 40% OF HER MEALS. PATIENT HAS RALES IN LUNGS AND HAS A COUGH, PATIENT ABDOMEN SOFT ROUND BOWEL SOUNDS PRESENT. PATIENT ORIENTED TO SELF ONLY PATIENT DID GET UP TO USE THE BATHROOM WITH ASSIST. DR PICKETT CAME TO OBSERVE PATIENT DISCONTINUED THE ORDER FOR THE IV. PATIENT HAS BEEN SLEEPING MOST OF THE DAY [facility] CALLED TO GET AN UPDATE OF PATIENT. DR BOSWELL CAME TO SEE PATIENT WILL CONTINUE TO MONITOR PATIENT FOR SAFETY AND BEHAVIORS. ALSO ENCOURAGE DRINKING AND EATING.
[2020-03-05 20:44] VITALS: BP 142/80
[2020-03-05 22:15] VITALS: BP 142/80
--- NOTE | 2020-03-06 05:26 | NUR ---
Assumed care of patient this pm shift. Patient calm and cooperative. Alert and oriented to self only. Patient is pleasantly confused and occasionally brings up random things in conversation. Affect is blunted. Patient takes medications crushed in applesauce or pudding. Falls precautions in place. Patient can ambulate with a walker. Vital signs stable. No signs of acute distress this shift. Denies hi/si. Denies pain. We will continue to monitor per hospital policy.
[2020-03-06 06:07] LABS: HEMATOCRIT 37.2 % (37.0-47.0); HEMOGLOBIN 11.9 gm/dL (12.0-15.0); MCH 32.4 pg (26.0-34.0); MCV 101.2 fL (80.0-100.0); RBC 3.68 mil/uL (4.20-5.00); WBC 16.8 thou/uL (4.0-11.0)
[2020-03-06 06:12] LABS: CALCIUM 9.6 mg/dL (8.5-10.1); CREATININE 1.2 mg/dL (0.6-1.0); MAGNESIUM 1.8 mg/dL (1.8-2.4); POTASSIUM 3.5 mmol/L (3.5-5.1)
[2020-03-06 07:25] VITALS: BP 156/81
--- NOTE | 2020-03-06 10:23 | NUR ---
Alert and orientated to self only. Confused speech. Hitting, pinching and attempting to scratch at times with ADLs, calm and quiet when not disturbed. No speech or behaviors suggestive of SI/HI. Did get up independently from bed and was ambulating with unsteady gait with walker when staff was attending to another pt. Tremors to upper extremities bilaterally. Breath sounds with mild rhonchi, clears with cough, nonproductive. Reg even spontaneous resp without nasal flaring or retractions. Reg HR auscultated. Color pale pink with brisk capillary refill and palpable peripheral pulses. Feet cool to touch. Incontinent of yellow urine to brief, later continent of yellow urine in toilet. Active bowel sounds over soft, rounded abdomen. Sat in WC with lap osiel, needed assistance with feeding. Ate approximately 10% of breakfast and 100% of magic cup. Took meds crushed in magic cup supplement. Ambulated around room with walker and then placed back in bed. Currently laying quietly in bed with TV on without s/o distress.
--- NOTE | 2020-03-06 16:16 | NUR ---
YONY spoke with [facility] and provided an update concerning pt being COVID positive. She said they do take their residents back when they are positive, and will isolate. She asked when pt would be ready for d/c and asked that SW fax pt's covid results. YONY spoke with Dr. Newman who said pt can return as early as tomorrow to [facility]. YONY faxed pt's updates and covid test. YONY contacted Leisa who said she will get in contact with admissions and arrange discharge. YONY team will continue to follow pt during her stay on this unit.
[2020-03-06 19:37] VITALS: BP 118/80
--- NOTE | 2020-03-06 20:42 | NUR ---
Assumed care on 03/06/20 @ 19:30, Alert, oriented x1 only, confused speach. Lungs clear but diminished, cough noted. Heart s1s2 noted, ABD soft and flat , last reported bm on 03/04/20. Not clear thinking enough to respond to mental health assessment questions. Regarding pain, when asked if she has pain right now, says, it will be later. No combatitive behavior noted with assessment. Tremor and shaking noted. Will continue to monitor q 12 minutes for patient safety and comfort as per [facility] protocol.
[2020-03-07 00:49] VITALS: BP 118/80
[2020-03-07 08:09] VITALS: BP 146/92
[2020-03-07] MEDS ORDERED: PREDNISONE 5 MG5 M1 PO (08:30)
--- NOTE | 2020-03-07 10:33 | NUR ---
PT CARE ASSUMED AT 0700. ALERT AND ORINETED TO NAME. PT SITTING CALMLY IN RECLINER WITH LAP KATRIN SECURED TO THE FRONT. TREMORS TO THE HANDS. UP WITH WALKER AND ONE ASSIST. NO AGRESSIVE BEHAVIORS NOTED. PILLS CRUSHED WITH APPLESAUCE. PT DISCHAGE ORDERS IN TO GO BACK TO [facility]. LUNGS SOUND CLEAR THIS SHIFT. ON ROOM AIR. NO IV PRESENT. SHOWERED. VITALS STABLE. FALL PROTOCOL IN PLACE. CALL LIGHT IN REACH. WILL CONTINUE TO MONITOR.
--- NOTE | 2020-03-07 11:47 | NUR ---
YONY was informed by the [facility] director that Dr. Wolfe has discharged pt; he did not coordinate care with pt's nursing facility. YONY faxed to Ruby with [facility] at [phone] updates and pt's current PT/OT notes. YONY contacted Ruby at [phone]. No answer. YONY left a msg. YONY team will continue to follow pt during her stay on this unit.
--- NOTE | 2020-03-07 12:22 | NUR ---
YONY D/C NOTE SW faxed to [facility] pt's discharge docs. No other needs for YONY team to address at this time.
== END 2020-03-07 16:39 | DRG 178 ==
LOC: SBH 16:47 → 2N 16:49 → SICU 16:53 → ICU 17:07 → SICU 19:09
PROVIDERS: Nurse Practitioner Family; ADMIT Hospitalist; ATTEND Hospitalist
DX: U07.1 COVID-19 (principal); F03.91 Unspecified dementia, unspecified severity, with behavioral disturbance; N39.0 Urinary tract infection, site not specified; E44.0 Moderate protein-calorie malnutrition; N17.9 Acute kidney failure, unspecified; R45.851 Suicidal ideations; I10 Essential (primary) hypertension; G89.29 Other chronic pain; R62.7 Adult failure to thrive; R33.9 Retention of urine, unspecified; M54.9 Dorsalgia, unspecified; F32.9 Major depressive disorder, single episode, unspecified; F03.90 Unspecified dementia, unspecified severity, without behavioral disturbance, psychotic disturbance, mood disturbance, and anxiety; F41.9 Anxiety disorder, unspecified; Z96.653 Presence of artificial knee joint, bilateral; Z66 Do not resuscitate; Z88.6 Allergy status to analgesic agent; Z88.2 Allergy status to sulfonamides; Z88.8 Allergy status to other drugs, medicaments and biological substances; Z88.1 Allergy status to other antibiotic agents; Z79.899 Other long term (current) drug therapy
CPT/HCPCS: 15000; 15002